=== PATIENT | female | born 1985 | race Caucasian/White ===

== ENCOUNTER 2016-12-27 08:48 | Emergency (ER) | payer BC ==
[~2016-12-27] VITALS: Ht 157.5 cm; Wt 63.5 kg
--- NOTE | ~2016-12-27 | CR142 ---
[facility] A Service of [facility] & [facility] RADIOLOGY TEXT RESULTS PATIENT: JEREMIAH COTO LOCATION: [facility] : 87 UNIT #: [id number] AGE: [address]: Krysten Genao SEX: F ORDER DR: [id number] [facility] [address] [place], [place] [address] [id number] E MR#: [id number] Acc #: [id number] NAME: JEREMIAH COTO : 1985 SEX: F STUDY DATE/TIME: 12/27/2016 9:27 UNIT: [facility] ROOM: STUDY DESCRIPTION: CR Hand Min 3 Views Rt Attending Physician: Krysten Genao Pa-C Ordering Physician: Ed Mike Dill M.D. Primary Care Physician: Rubén Marinelli M.D. MEDICAL IMAGING REPORT This report is preliminary unless electronic signature is present EXAM Right hand 3 views HISTORY Right fourth and fifth digit pain and swelling, onset today. Hit hand on steering wheel trying to kill bug. FINDINGS AP, lateral, and oblique projections of the hand show good mineralization with normal carpal, metacarpal, and phalangeal anatomy without indication of fracture, dislocation, or soft tissue radiopaque foreign body. IMPRESSION Normal hand. Dictated by... Vonda Oliva M.D. THIS IS AN ELECTRONICALLY VERIFIED REPORT Vonda Oliva M.D. at 12/27/2016 4:04 PM Dominique TD: 12/27/2016 14:10 JOB #: [id number] MEDICAL IMAGING REPORT Page 1 of 1 COPY
[~2016-12-27 08:48] MED LIST: ALBUTEROL17 G1 IH; ALBUTEROL17 GM INH; AUGMENTIN PO; BENZONATATE PO; DOXYCYCLINE PO; FERROUS SULFATE PO; KETOPROFEN PO; LEVAQUIN PO; MEDROL PO; MEDROL4 MG/DOSE- PO; PHENERGAN DM; PHENERGAN PO; PREDNISONE PO; PRENATAL MULITV1 TAB PO; PRILOSEC PO; ROBITUSSIN A-C-S1 ML PO; SLOW FE160 MG; TESSALON200 MG PO; TYLENOL #3 PO; ULTRAM PO; VIBRAMYCIN100 M1 PO; VICODIN 5/500 T1 TAB PO
== END 2016-12-27 10:46 | disposition home or self-care (01) ==
LOC: CED 08:48
DX: M79.641 Pain in right hand (principal); F41.9 Anxiety disorder, unspecified; F17.200 Nicotine dependence, unspecified, uncomplicated
CPT/HCPCS: 29125; 73130; 99283